=== PATIENT | female | born 1985 | race Hispanic/Latino ===

== ENCOUNTER 2022-07-12 01:43 | Observation (INO) | payer OTHER ==
[~2022-07-12] VITALS: Ht 154.9 cm; Wt 81.6 kg
[2022-07-12] VITALS (7 sets, daily range): BP systolic 100–134; BP diastolic 54–74
[2022-07-12] MEDS ORDERED: KETOROLAC TROMETHAMINE 30 MG/ML VIAL IV STA (02:00)
[2022-07-12 02:48] LABS: BASOPHILS % 0.3 % (0.0-1.0); EOSINOPHILS # (AUTO) 0.1 (0.0-0.4); EOSINOPHILS % 1.9 % (0.0-6.0); HEMOGLOBIN 9.9 g/dL (12.0-16.0); LYMPHOCYTES # (AUTO) 0.9 (1.0-3.2); MEAN CORPUSCULAR HEMOGLOBIN 27.4 pg (28-32); MEAN CORPUSCULAR HGB CONC 30.9 g/dL (31-35); MEAN CORPUSCULAR VOLUME 88.6 fL (81-99); MONOCYTES # (AUTO) 0.4 (0.2-0.8); MONOCYTES % 6.4 % (4.4-11.3); NEUTROPHILS % 77.1 % (38.7-80.0); PLATELET COUNT 275 x10e3/uL (140-360); RED BLOOD COUNT 3.61 x10e6/uL (3.6-5.1); RED CELL DISTRIBUTION WIDTH 14.2 % (11.7-14.4)
[2022-07-12 03:05] LABS: ALBUMIN 3.5 g/dL (3.5-5.0); ALBUMIN/GLOBULIN RATIO 0.9 (0.8-2.0); ANION GAP 13.9 mmol/L (8-16); CALCIUM 8.8 mg/dL (8.4-10.2); CREATININE, SERUM 0.65 mg/dL (0.57-1.11); POTASSIUM 3.9 mmol/L (3.5-5.1)
[2022-07-12 03:10] LABS: CLARITY,URINE HAZY (CLEAR); COLOR,URINE YELLOW (YELLOW); LEUKOCYTE ESTERASE ,URINE MODERATE (NEGATIVE)
[2022-07-12 03:11] LABS: KETONES,URINE NEGATIVE (NEGATIVE); NITRITE,URINE NEGATIVE (NEGATIVE); PROTEIN,URINE DIPSTICK NEGATIVE (NEGATIVE); URINE UROBILINOGEN 1 mg/dL (0.2 - 1)
[2022-07-12 03:12] LABS: RBC,URINE 0-5 /HPF (0-5); WBC,URINE (MAN) >50 /HPF (0-5)
[2022-07-12 03:13] LABS: BACTERIA,URINE MODERATE /HPF; EPITHELIAL CELLS,URINE MANY /LPF
[2022-07-12] MEDS ORDERED: Morphine 4mg INJECTION 4 MG/ML INJ IV ONE (03:45)
[2022-07-12] MEDS ORDERED: ONDANSETRON HCL INJ 2MG/ML 2ML 2 MG/ML VIAL IV PRN ×3 (04:15→15:45)
[2022-07-12] MEDS ORDERED: SODIUM CHLORIDE 0.9% 1000ML 1,000 ML IV SCH ×2 (04:15→10:15)
[2022-07-12] MEDS ORDERED: BUPIVACAINE 0.25% 30ML SDV ONE (06:59)
[2022-07-12] MEDS: Morphine 4mg INJECTION 4 MG/ML INJ IV PRN ×2 (07:29→12:20)
[2022-07-12] MEDS ORDERED: FENTANYL CITRATE/PF 100MCG/2 ML INJ ONE ×2 (09:11→10:41)
[2022-07-12] MEDS ORDERED: MIDAZOLAM HCL 2 MG/2 ML VIAL ONE (09:11)
[2022-07-12] MEDS ORDERED: ACETAMINOPHEN 325 MG TAB PO PRN ×2 (10:15→15:45)
[2022-07-12] MEDS ORDERED: HYDROCODONE/APAP 5MG-325MG TAB PO PRN (10:15)
[2022-07-12] MEDS ORDERED: DEXTROSE 50% SYRINGE 50 ML IV PRN (15:45)
[2022-07-12] MEDS ORDERED: POTASSIUM CHLORIDE 20 MEQ TAB CR PO PRN (15:45)
[2022-07-12] MEDS ORDERED: DIPHENHYDRAMINE HCL 25 MG CAP PO PRN (15:45)
[2022-07-12] MEDS ORDERED: BENZONATATE 100 MG CAP PO PRN (15:45)
[2022-07-12] MEDS ORDERED: DOCUSATE SODIUM 100 MG CAP PO PRN (15:45)
[2022-07-12] MEDS ORDERED: ALBUTEROL/IPRATROPIUM 3 ML NEB NEB PRN (15:45)
[2022-07-12] MEDS ORDERED: ROCURONIUM BROMIDE 10 MG/ML 5ML VIAL IV ONE (17:06)
[2022-07-12] MEDS ORDERED: LIDOCAINE HCL 2% LOCAL INJ 5 ML SDV VIAL INJ ONE (17:06)
[2022-07-12] MEDS ORDERED: SEVOFLURANE INHAL SOLN 250 ML PEN BTL INH ONE (17:06)
[2022-07-12] MEDS ORDERED: POVIDONE IODINE 0.05% 0.05 % ML PO ONE (17:06)
[2022-07-12] MEDS ORDERED: NEOSTIGMINE 1 MG/ML 10ML VIAL IV ONE (17:06)
[2022-07-12] MEDS ORDERED: ONDANSETRON HCL INJ 2MG/ML 2ML 2 MG/ML VIAL IV ONE (17:06)
[2022-07-12] MEDS ORDERED: KETOROLAC TROMETHAMINE 30 MG/ML VIAL IV ONE (17:06)
[2022-07-12] MEDS ORDERED: GLYCOPYRROLATE INJ 0.2 MG/ML VIAL IV ONE (17:06)
[2022-07-12] MEDS ORDERED: PROPOFOL IV EMULSION 10 MG/ML 20 ML VIAL IV ONE (17:06)
[2022-07-12] MEDS ORDERED: MELATONIN 5 MG TABLET PO PRN (21:00)
[2022-07-13] MEDS ORDERED: PANTOPRAZOLE SOD 40 MG TABEC PO SCH (07:30)
== END 2022-07-12 17:07 | disposition home or self-care (01) ==
LOC: ER 01:50 → ERHOLD 04:04 → MED/SURG 06:45
PROVIDERS: ADMIT Internal Medicine; ATTEND Internal Medicine
DX: K80.12 Calculus of gallbladder with acute and chronic cholecystitis without obstruction (principal); K55.069 Acute infarction of intestine, part and extent unspecified; Z20.822 Contact with and (suspected) exposure to COVID-19; I10 Essential (primary) hypertension; Z98.84 Bariatric surgery status; K31.84 Gastroparesis; Z88.1 Allergy status to other antibiotic agents
CPT/HCPCS: 36415; 47562; 49255; 76705; 80053; 81001; 81025; 82948; 83690; 85025; 88307; 94799; 99284; G0378; J1885; J2001; J2250; J2270; J2405; J2543; J2704; J2710; J3010; J7030; U0002; 88304

== ENCOUNTER 2025-04-10 13:31 | Observation (INO) | payer OTHER ==
[~2025-04-10] VITALS: Ht 160 cm; Wt 102.1 kg
[2025-04-10 14:16] LABS: BASOPHILS % 0.5 % (0.0-1.0); EOSINOPHILS % 3.2 % (0.0-6.0); LYMPHOCYTES % 23.3 % (18.0-39.1); MONOCYTES % 5.1 % (4.4-11.3); NEUTROPHILS % 67.7 % (38.7-80.0); RED CELL DISTRIBUTION WIDTH 21.1 % (11.7-14.4)
[2025-04-10 14:29] LABS: EST GLOMERULAR FILTRATION RATE 112.0 ML/MIN (>=60)
[2025-04-10] MEDS ORDERED: SODIUM CHLORIDE FLUSH 10 ML SYR INJ PRN (15:00)
[2025-04-10] MEDS ORDERED: ONDANSETRON HCL INJ 2MG/ML 2ML 2 MG/ML VIAL IV PRN (15:00)
[2025-04-10] MEDS: ACETAMINOPHEN 325 MG TAB PO ONE (16:36)
[2025-04-10] MEDS ORDERED: SODIUM CHLORIDE 0.9% 250ML 250 ML ONE (18:46)
[2025-04-10 20:05] VITALS: PULSE 91; RESP 19; TEMP 98.1
[2025-04-10] MEDS: DIPHENHYDRAMINE HCL 25 MG CAP PO ONE (20:05)
[2025-04-10] MEDS: SODIUM CHLORIDE 0.9% 250ML 250 ML IV ONE (20:09)
[2025-04-10 21:26] VITALS: BP 106/69; PULSE 68; RESP 18; TEMP 97.8; O2SAT 100
[2025-04-10] MEDS ORDERED: HYDROXYZINE HCL25 MG PO (21:55)
[2025-04-10] MEDS ORDERED: BUSPIRONE HCL15 MG (21:55)
[2025-04-10] MEDS ORDERED: CYCLOBENZAPRINE5 MG PO (21:55)
[2025-04-10] MEDS ORDERED: BENTYL10 MG/1 ML IV (21:55)
[2025-04-10] MEDS ORDERED: ROPINIROLE HCL1 MG PO (21:55)
[2025-04-10] MEDS ORDERED: GABAPENTIN300 MG PO (21:55)
[2025-04-10] MEDS ORDERED: ALPRAZOLAM0.25 M1 PO (21:55)
[2025-04-10] MEDS ORDERED: PEPCID20 MG PO (21:55)
[2025-04-10] MEDS ORDERED: VENLAFAXINE H37.5 M2 PO (21:55)
[2025-04-10] MEDS ORDERED: PROZAC40 MG PO (21:55)
[2025-04-10 22:03] VITALS: BP 106/69; PULSE 68; RESP 18; TEMP 97.8; O2SAT 100
[2025-04-10 22:08] VITALS: BP 106/69; PULSE 68; RESP 18; TEMP 97.8; O2SAT 100
[2025-04-10 22:11] VITALS: BP 106/69; PULSE 76; RESP 18; TEMP 97.8; O2SAT 100
[2025-04-10 22:17] VITALS: BP 106/69; PULSE 76; RESP 18; TEMP 97.8; O2SAT 100
[2025-04-10] MEDS ORDERED: MELATONIN 3 MG TAB PO PRN (23:45)
[2025-04-10] MEDS ORDERED: METOPROLOL TARTRATE INJ 1 MG/ML VIAL IV PRN (23:45)
[2025-04-10] MEDS ORDERED: ALBUTEROL/IPRATROPIUM 3 ML NEB NEB PRN (23:45)
[2025-04-10] MEDS ORDERED: ALPRAZOLAM 0.25 MG TAB PO PRN (23:45)
[2025-04-11] VITALS: BP 101/71; PULSE 71; RESP 18; TEMP 97.7; O2SAT 100
[2025-04-11] MEDS: PANTOPRAZOLE SOD 40 MG TABEC PO SCH (00:18)
[2025-04-11 04:56] VITALS: BP 104/62; PULSE 72; RESP 18; TEMP 97.5; O2SAT 100
[2025-04-11 06:01] LABS: BASOPHILS % 0.5 % (0.0-1.0); EOSINOPHILS % 4.5 % (0.0-6.0); LYMPHOCYTES % 33.0 % (18.0-39.1); MONOCYTES % 7.1 % (4.4-11.3); NEUTROPHILS % 54.7 % (38.7-80.0); RED CELL DISTRIBUTION WIDTH 23.2 % (11.7-14.4)
[2025-04-11 06:24] LABS: EST GLOMERULAR FILTRATION RATE 113.0 ML/MIN (>=60)
[2025-04-11 06:41] LABS: % IRON SATURATION 4.0 % (15-50)
[2025-04-11 07:47] VITALS: PULSE 74; RESP 18; O2SAT 98
[2025-04-11 07:56] VITALS: BP 99/58; PULSE 67; RESP 18; TEMP 97.9; O2SAT 100
[2025-04-11] MEDS ORDERED: SODIUM CHLORIDE 0.9% 250ML 250 ML IV ONE (09:45)
[2025-04-11] MEDS: HYDROXYZINE HCL 25 MG TAB PO SCH (10:28)
[2025-04-11] MEDS: ROPINIROLE HCL 1 MG TAB PO SCH (10:28)
[2025-04-11] MEDS: GABAPENTIN 300 MG CAP PO SCH (10:28)
[2025-04-11] MEDS: FLUOXETINE HCL 20 MG CAP PO SCH (10:28)
[2025-04-11 10:39] LABS: PLATELET ESTIMATE ADEQUATE; PLATELET MORPHOLOGY COMMENT NORMAL
[2025-04-11] MEDS: FERROUS SULFATE 325 MG TAB PO SCH (10:51)
[2025-04-11] MEDS: VENLAFAXINE HCL 37.5 MG TAB PO SCH (10:51)
[2025-04-11] MEDS: CYANOCOBALAMIN INJ 1,000 MCG/ML VIAL IM SCH (10:52)
[2025-04-11 12:01] VITALS: BP 101/65; PULSE 67; RESP 20; TEMP 97.5; O2SAT 100
[2025-04-11 15:48] VITALS: BP 114/70; PULSE 78; RESP 19; TEMP 97.9; O2SAT 98
[2025-04-11] MEDS ORDERED: Ferrous Sulfate PO (18:18)
[2025-04-11] MEDS ORDERED: PANTOPRAZOLE SO40 MG PO (18:18)
[2025-04-11] MEDS ORDERED: VITAMIN B-121000 MC2 PO (18:18)
[2025-04-11] MEDS ORDERED: CYCLOBENZAPRINE HCL 10 MG TAB PO SCH (21:00)
== END 2025-04-11 19:00 | disposition home or self-care (01) ==
LOC: ER 13:48 → INTOOBSV 14:57 → ERHOLD 14:57 → MED/SURG3 21:20
PROVIDERS: ADMIT Internal Medicine; ATTEND Internal Medicine
DX: D64.9 Anemia, unspecified (principal); D51.9 Vitamin B12 deficiency anemia, unspecified; D50.9 Iron deficiency anemia, unspecified; F17.210 Nicotine dependence, cigarettes, uncomplicated; E66.01 Morbid (severe) obesity due to excess calories; Z68.39 Body mass index [BMI] 39.0-39.9, adult; Z98.84 Bariatric surgery status; E11.9 Type 2 diabetes mellitus without complications; E03.9 Hypothyroidism, unspecified; K21.9 Gastro-esophageal reflux disease without esophagitis; M06.9 Rheumatoid arthritis, unspecified; L40.9 Psoriasis, unspecified; F31.9 Bipolar disorder, unspecified
CPT/HCPCS: 36415 ×2; 36430 ×2; 80048; 80053 ×2; 82607; 82728; 82746; 83540; 84466; 84702; 85014; 85018; 85025 ×2; 86850; 86900; 86920; 94799; 99284; G0378 ×2; J2470; J3410; J3420; J7050 ×2; P9016 ×2